=== PATIENT | female | born 1955 | race Caucasian/White ===

== ENCOUNTER → 2016-11-15 | Outpatient (CLI) | payer BC ==
[~2016-11-15] MED LIST: ACCURETIC 20-121 TAB; ACCURETIC 20-121 TAB PO; CARDIZEM SR; CITALOPRAM HBR40 MG PO; DILTIAZEM 24HR240 M2 PO; EFFEXOR XR; EXCEDRIN; GLUCOSAMINE SULFATE; MELATONIN PLUS; OTC SINUS; WELLBUTRIN SR150 MG PO; ZANTAC
[2016-11-15 09:22] LABS: ALBUMIN SERUM 3.9 g/dL (3.5-5.0); BILIRUBIN,TOTAL 0.3 mg/dL (0.2-2.0); CALCIUM SERUM 9.2 mg/dL (8.4-10.2); GLOM FILT RATE Estimated 61.6 mL/min (>60); POTASSIUM 3.9 mmol/L (3.5-5.1); PROTEIN TOTAL SERUM 6.8 g/dL (6.0-8.3)
[2016-11-17 07:40] LABS: HEP C AB (HEPPAN) Nonreactive (Nonreactive); HEP C AB SIGNAL TO CUTOFF 0.06 ratio (<1.00)
== END | disposition home or self-care (01) ==
LOC: CWCC 08:21 → CLAB 08:21 → CWCC 16:30
PROVIDERS: Family Medicine
DX: I10 Essential (primary) hypertension (principal); Z11.59 Encounter for screening for other viral diseases
CPT/HCPCS: 36415; 80053; 80061; 86803

== ENCOUNTER → 2016-11-24 | Outpatient (CLI) | payer BC ==
--- NOTE | ~2016-11-24 | BD1 ---
[facility] A Service of [facility] RADIOLOGY TEXT RESULTS PATIENT: BHARGAVI JORDAN LOCATION: [facility] : 57 UNIT #: [id number] AGE: [address]: Anjali Barber MD SEX: F ORDER DR: [id number] [facility] [address] [place], [place] [address] [id number] O MR#: [id number] Acc #: [id number] NAME: BHARGAVI JORDAN : 1955 SEX: F STUDY DATE/TIME: 11/24/2016 16:33 UNIT: [facility] ROOM: STUDY DESCRIPTION: BD Dexa Bone Dens 1+ Site Attending Physician: Anjali Barber M.D. Ordering Physician: Anjali Barber M.D. Primary Care Physician: Anjali Barber M.D. MEDICAL IMAGING REPORT This report is preliminary unless electronic signature is present EXAM DXA scan, 11/24/2016 HISTORY Status post menopause with no hormone replacement therapy. Osteopenia. Hypertension with blood pressure medication for 25 years. Family history of osteoporosis in mother. FINDINGS Bone mineral density in the lumbar spine from L1-L2 was 0.799 g/cm2 which is 1.6 standard deviations below the mean when compared to the young adult reference population which is characteristic of osteopenia. This is 0.3 standard deviations below the mean when compared to the age-matched population. Bone mineral density in the left femoral neck was 0.58 g/cm2 which is 2.4 standard deviations below the mean when compared to the young adult reference population which is characteristic of osteopenia. This is 1.1 standard deviations below the mean when compared to the age-matched population. IMPRESSION Bone mineral density in the lumbar spine and left hip characteristic of osteopenia. Dictated by... Camron Kwong M.D. THIS IS AN ELECTRONICALLY VERIFIED REPORT Camron Kwong M.D. at 11/25/2016 5:35 PM TARIQ/janette TD: 11/25/2016 12:32 [facility] A Service of [facility] RADIOLOGY TEXT RESULTS PATIENT: BHARGAVI JORDAN LOCATION: [facility] : 57 UNIT #: [id number] AGE: [address]: Anjali Barber MD SEX: F ORDER DR: [place] #: [id number] MEDICAL IMAGING REPORT Page 1 of 1 COPY
== END | disposition home or self-care (01) ==
LOC: CWCC 16:11
DX: Z13.820 Encounter for screening for osteoporosis (principal); M85.89 Other specified disorders of bone density and structure, multiple sites
CPT/HCPCS: 77080